=== PATIENT | female | born 1995 | race Two or more races ===

== ENCOUNTER 2024-12-22 06:41 | Outpatient (CLI) | payer OTHER ==
[2024-12-22 07:57] LABS: URINE APPEARANCE Clear; URINE BILIRRUBIN Negative (NEGATIVE); URINE BLOOD Negative; URINE COLOR Yellow; URINE GLUCOSE Negative (NEGATIVE); URINE KETONE Negative (NEGATIVE); URINE LEUKOCYTE Negative; URINE NITRATE Negative; URINE PROTEIN Negative (NEGATIVE); URINE UROBILINOGEN 0.2 E.U./dl
[2024-12-22 08:01] LABS: URINE EPITHELIAL CELLS 44.1 uL (0.0-38.8); URINE RBC 3.3 uL (0.0-20.8); URINE WBC 14.8 uL (0.0-23.2)
[2024-12-22 08:28] LABS: ALBUMIN 3.8 gm/dL (3.4-5.0); BILIRUBIN TOTAL 0.6 mg/dL (0.3-1.2); CALCIUM 8.5 mg/dL (8.5-10.1); CHOL HDL RATIO 2.7 (0-5.0); CREATININE SERUM 0.56 mg/dL (0.55-1.02); GFR 129.86; POTASSIUM 4.54 mEq/L (3.5-5.1); TOTAL PROTEIN 6.8 gm/dL (6.4-8.2); TSH 3.48 uIU/mL (0.358-3.74)
[2024-12-22 08:39] LABS: URINE CAST 0.58 uL (0.0-1.40); URINE MUCUS HEAVY
[2024-12-22 09:27] LABS: HEMATOCRIT 39.8 % (34.1-44.9); RED BLOOD COUNT 4.43 M/uL (3.93-5.22)
[2024-12-22 09:28] LABS: BASO % 0.7 % (0.1-1.2); EOS # 0.16 (0.04-0.54); EOS % 3.5 % (0.7-7.0); LYMPH # 1.79 (1.18-3.74); LYMPH % 39.2 % (19.3-53.1); MEAN CORPUSCULAR HEMOGLOBIN 29.3 pg (25.6-32.2); MONO # 0.45 (0.24-0.82); MONO % 9.8 % (4.7-12.5); NEUT # 2.14 (1.56-6.13); NEUT % 46.8 % (34.0-71.1); PLATELET COUNT 258 K/uL (163-369); RED CELL DISTRIBUTION WIDTH 11.5 % (11.6-14.4)
== END 2024-12-22 06:42 | disposition home or self-care (01) ==
LOC: LAB 06:41
PROVIDERS: ATTEND Internal Medicine Geriatric Medicine
DX: D50.9 Iron deficiency anemia, unspecified (principal); E03.9 Hypothyroidism, unspecified; E78.2 Mixed hyperlipidemia; I11.9 Hypertensive heart disease without heart failure; E56.8 Deficiency of other vitamins; N39.0 Urinary tract infection, site not specified; Z12.11 Encounter for screening for malignant neoplasm of colon; R19.5 Other fecal abnormalities; E55.9 Vitamin D deficiency, unspecified; N19 Unspecified kidney failure; E11.9 Type 2 diabetes mellitus without complications; R80.9 Proteinuria, unspecified; C18.9 Malignant neoplasm of colon, unspecified; K92.1 Melena; Z12.5 Encounter for screening for malignant neoplasm of prostate

== ENCOUNTER 2025-04-06 15:02 | Outpatient (CLI) | payer OTHER ==
[2025-04-08 05:07] LABS: HEPATITIS A ANTIBODY IGG Negative (Negative); HEPATITIS B SURFACE ANTIBODY Reactive (.); HEPATITIS C VIRUS ANTIBODY Non Reactive (Non Reactive)
== END 2025-04-06 15:06 | disposition home or self-care (01) ==
LOC: LAB 15:02
DX: A64 Unspecified sexually transmitted disease (principal); B19.9 Unspecified viral hepatitis without hepatic coma; R10.9 Unspecified abdominal pain; B15.0 Hepatitis A with hepatic coma

== ENCOUNTER 2025-05-17 06:29 | Outpatient (CLI) | payer OTHER ==
[2025-05-17 07:24] LABS: BASO % 0.3 % (0.1-1.2); EOS # 0.24 (0.04-0.54); EOS % 4.1 % (0.7-7.0); LYMPH # 2.03 (1.18-3.74); LYMPH % 34.5 % (19.3-53.1); MEAN PLATELET VOLUME 10.10 fl (9.4-12.4); MONO # 0.58 (0.24-0.82); MONO % 9.8 % (4.7-12.5); NEUT # 3.01 (1.56-6.13); NEUT % 51.1 % (34.0-71.1); RED CELL DISTRIBUTION WIDTH 11.4 % (11.6-14.4)
[2025-05-17 08:21] LABS: ALT/SGPT 21.0 U/L (12-78); AST/SGOT 15.0 U/L (15-37); BILIRUBIN TOTAL 0.61 mg/dL (0.3-1.2); BUN CREA RATIO 21.0 (7.0-25.0); CHOL HDL RATIO 2.5 (0-5.0); CREATININE SERUM 0.68 mg/dL (0.55-1.02); GFR 102.29; GLOBULINA 2.9 G/DL (2.4-3.5); GLUCOSE FASTING 90.0 mg/dL (65-100); HDL 71.0 mg/dl (40-60); LDL 81.0 mg/dl (0-130); OSMOLALITY SERUM 281.0 MOSM/KG (275-295); VLDL 22.0 (0-39)
[2025-05-17 08:22] LABS: TSH 5.12 uIU/mL (0.358-3.74)
[2025-05-17 10:25] LABS: URINE APPEARANCE Clear; URINE BILIRRUBIN Negative (NEGATIVE); URINE BLOOD Negative; URINE COLOR Yellow; URINE GLUCOSE Negative (NEGATIVE); URINE KETONE Negative (NEGATIVE); URINE LEUKOCYTE Negative; URINE NITRATE Negative; URINE PROTEIN Negative (NEGATIVE); URINE UROBILINOGEN 0.2 E.U./dl
[2025-05-17 10:32] LABS: URINE BACTERIA 343.2 uL (0.0-1933); URINE EPITHELIAL CELLS 16.1 uL (0.0-38.8); URINE RBC 2.7 uL (0.0-20.8); URINE WBC 3.8 uL (0.0-23.2)
[2025-05-17 10:42] LABS: URINE CAST 0.00 uL (0.0-1.40)
== END 2025-05-17 06:33 | disposition home or self-care (01) ==
LOC: LAB 06:29
PROVIDERS: ATTEND Internal Medicine Geriatric Medicine
DX: D50.9 Iron deficiency anemia, unspecified (principal); E03.9 Hypothyroidism, unspecified; E78.2 Mixed hyperlipidemia; I11.9 Hypertensive heart disease without heart failure; E56.8 Deficiency of other vitamins; N39.0 Urinary tract infection, site not specified; Z12.11 Encounter for screening for malignant neoplasm of colon; R19.5 Other fecal abnormalities; E55.9 Vitamin D deficiency, unspecified; N19 Unspecified kidney failure; E11.9 Type 2 diabetes mellitus without complications; R80.9 Proteinuria, unspecified; C18.9 Malignant neoplasm of colon, unspecified; K92.1 Melena; Z12.5 Encounter for screening for malignant neoplasm of prostate; N18.5 Chronic kidney disease, stage 5

== ENCOUNTER 2025-05-25 15:00 | Outpatient (CLI) | payer OTHER | END 2025-05-25 15:10 | disposition home or self-care (01) | LOC: PPH VACUNA 15:00 | PROVIDERS: ATTEND Emergency Medicine Pediatric Emergency Medicine | DX: Z23 Encounter for immunization (principal) ==